=== PATIENT | male | born 1975 | race Two or more races ===

== ENCOUNTER → 2016-12-05 | Outpatient (REF) | payer OTHER | LOC: M SMT 13:26 | PROVIDERS: ATTEND Urology | DX: Z30.2 Encounter for sterilization (principal) ==

== ENCOUNTER → 2017-02-03 | Outpatient (REF) | payer OTHER ==
[2017-02-03 13:49] LABS: IMMMOTILE SPERM CENTRIFUGED ABSENT (ABSENT); IMMOTILE SPERM ABSENT (ABSENT); MOTILE SPERM ABSENT (ABSENT); MOTILE SPERM CENTRIFUGED ABSENT (ABSENT)
== END ==
LOC: M SMT 13:31
PROVIDERS: ATTEND Urology
DX: Z98.52 Vasectomy status (principal)

== ENCOUNTER → 2017-10-03 | Outpatient (CLI) | payer OTHER | LOC: M PAIN 10:00 | DX: M47.812 Spondylosis without myelopathy or radiculopathy, cervical region (principal); M79.1 Myalgia; F32.9 Major depressive disorder, single episode, unspecified; Z79.899 Other long term (current) drug therapy | CPT/HCPCS: G0463 ==

== ENCOUNTER → 2018-08-21 | Outpatient (CLI) | payer OTHER ==
--- NOTE | 2018-08-21 11:07 | REP ---
CT ABDOMEN WITHOUT CONTRAST: HISTORY: Right upper quadrant abdominal tenderness. Symptoms times 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 Bowel gas pattern is normal. The lung bases are clear on axial CT images. The liver and the spleen are normal in size homogeneous in texture. No adrenal lesion is seen. The kidneys are morphologically intact. No hydronephrosis or stone is seen. Gallbladder is unremarkable by CT. Normal pancreas is observed. There is an accessory splenule in the left upper quadrant of the abdomen. Normal caliber aorta. Small and large bowel loops are normal in the abdomen. A retrocecal non-inflamed appendix is seen. No abdominal wall defect is observed. No bony destructive lesion is appreciated. IMPRESSION: Unremarkable CT abdomen without IV or oral contrast. Electronically Signed by Jaylen Wood MD 08/21/2018 11:51 A
== END ==
LOC: M RAD 07:34
PROVIDERS: ATTEND Physician Assistant
DX: R10.811 Right upper quadrant abdominal tenderness (principal)